=== PATIENT | female | born 1975 | race Asian ===

== ENCOUNTER 2022-05-10 09:44 | Day surgery (SDC) | payer BC ==
[2022-05-10] MEDS ORDERED: IRON SUCROSE INJECTION 300 MG in SODIUM CHLORIDE 250 ML IVPB ONE (10:15)
[2022-05-10 12:03] VITALS: BP 157/79; PULSE 81; RESP 17; TEMP 98.8
== END 2022-05-10 12:05 | disposition home or self-care (01) ==
LOC: FINFUSION 09:44 → FM/S 09:49 → FINFUSION 12:05
PROVIDERS: ATTEND Family Medicine
PROC: 3E033GC Introduction of Other Therapeutic Substance into Peripheral Vein, Percutaneous Approach (ICD-10-PCS; principal; 2022-05-10)
DX: D50.9 Iron deficiency anemia, unspecified (principal)
CPT/HCPCS: 96365; J1756

== ENCOUNTER 2022-06-06 16:28 | Day surgery (SDC) | payer BC ==
[2022-06-06] MEDS ORDERED: IRON SUCROSE INJECTION 200 MG in SODIUM CHLORIDE 100 ML IVPB ONE (16:30)
[2022-06-06 18:19] VITALS: BP 126/78; PULSE 79; RESP 18; TEMP 98.7
== END 2022-06-06 18:19 | disposition home or self-care (01) ==
LOC: FINFUSION 16:28 → FM/S 16:29 → FINFUSION 18:19
PROVIDERS: ATTEND Family Medicine
PROC: 3E033GC Introduction of Other Therapeutic Substance into Peripheral Vein, Percutaneous Approach (ICD-10-PCS; principal; 2022-06-06)
DX: D50.9 Iron deficiency anemia, unspecified (principal)
CPT/HCPCS: 96365; J1756

== ENCOUNTER 2022-06-13 16:24 | Day surgery (SDC) | payer BC ==
[2022-06-13] MEDS ORDERED: IRON SUCROSE INJECTION 200 MG in SODIUM CHLORIDE 100 ML IVPB ONE (16:30)
[2022-06-13 17:47] VITALS: BP 155/75; PULSE 73; TEMP 97.8
[2022-06-13 18:18] VITALS: RESP 18
== END 2022-06-13 18:19 | disposition home or self-care (01) ==
LOC: FINFUSION 16:24 → FM/S 16:24 → FINFUSION 18:19
PROVIDERS: ATTEND Family Medicine
PROC: 3E033GC Introduction of Other Therapeutic Substance into Peripheral Vein, Percutaneous Approach (ICD-10-PCS; principal; 2022-06-13)
DX: D50.9 Iron deficiency anemia, unspecified (principal)
CPT/HCPCS: 96365; J1756

== ENCOUNTER 2022-06-20 15:30 | Day surgery (SDC) | payer BC ==
[2022-06-20] MEDS ORDERED: IRON SUCROSE INJECTION 200 MG in SODIUM CHLORIDE 100 ML IVPB ONE (16:30)
[2022-06-20 17:34] VITALS: BP 125/78; PULSE 76; RESP 17; TEMP 98.8
== END 2022-06-20 17:20 | disposition home or self-care (01) ==
LOC: FINFUSION 15:30 → FM/S 15:31 → FINFUSION 17:20
PROVIDERS: ATTEND Family Medicine
PROC: 3E033GC Introduction of Other Therapeutic Substance into Peripheral Vein, Percutaneous Approach (ICD-10-PCS; principal; 2022-06-20)
DX: D50.9 Iron deficiency anemia, unspecified (principal)
CPT/HCPCS: 96365; J1756